=== PATIENT | female | born 1995 | race African-American/Black ===

== ENCOUNTER 2021-03-19 17:59 | Emergency (ER) | payer OTHER ==
[~2021-03-19] VITALS: Ht 170.2 cm; Wt 68.0 kg
[2021-03-19 18:10] VITALS: BP 130/84
--- NOTE | 2021-03-19 18:16 | NUR ---
PT SEEN AND EXAMINED BY AUDREY DAWSON.
[2021-03-19] MEDS ORDERED: ACETAMINOPHEN 325 MG TABLET ONE (18:37)
[2021-03-19] MEDS ORDERED: TDAP [DIPH/PERTUSSIS/TET] 0.5 ML VIAL IM ONE (18:37)
[2021-03-19] MEDS: TDAP [DIPH/PERTUSSIS/TET] 0.5 ML VIAL IM ONE (18:50)
[2021-03-19] MEDS: ACETAMINOPHEN 325 MG TABLET PO ONE (18:50)
--- NOTE | 2021-03-19 18:56 | NUR ---
WOUND CLEANING AND DRESSING DONE BY TRAVEL [facility]G RN.
--- NOTE | 2021-03-19 19:23 | NUR ---
Patient discharged to home in stable condition. Written and verbal after care instructions given. Patient verbalizes understanding of instruction. Pt ambulatory with a steady gait
== END 2021-03-19 19:24 | disposition home or self-care (01) ==
LOC: ER 17:59
DX: S61.217A Laceration without foreign body of left little finger without damage to nail, initial encounter (principal); W25.XXXA Contact with sharp glass, initial encounter; Y93.89 Activity, other specified; Y92.89 Other specified places as the place of occurrence of the external cause; Y99.8 Other external cause status
CPT/HCPCS: 90715

== ENCOUNTER 2021-10-02 09:41 | Emergency (ER) | payer OTHER ==
[~2021-10-02] VITALS: Ht 175.3 cm; Wt 63.5 kg
--- NOTE | 2021-10-02 09:51 | NUR ---
RIGHT FLANK PAIN WHEN SHE BREATHS IN DEEPLY X 1 WEEK. PT A/OX4. TOLERATING R/A WELL WITH NO SOB. CONNECTED PT TO POX AND MONITOR
[2021-10-02 10:25] LABS: PLATELET COUNT (AUTO) 223 K/uL (150-450)
[2021-10-02 10:28] LABS: BILIRUBIN,URINE Negative (NEGATIVE); COLOR,URINE YELLOW (YELLOW); LEUKOCYTE ESTERASE ,URINE Small (NEGATIVE); NITRITE, URINE Negative (NEGATIVE); PH,URINE 5.5 (5.0-8.0); PROTEIN,URINE Negative (NEGATIVE); UGLUCOSE Negative (NEGATIVE); UROBILINOGEN,URINE 0.2 EU/dL (0.2)
[2021-10-02 10:29] LABS: BACTERIA,URINE Few /HPF (None Seen); BASOPHILS # (AUTO) 0.1 K/uL (0.0-0.2); BASOPHILS % (AUTO) 1.3 % (0.0-2.0); EOSINOPHILS % (AUTO) 1.4 % (0.0-6.0); HEMATOCRIT 42 % (33-45); HEMOGLOBIN 14.2 g/dL (11.5-14.8); LYMPHOCYTES # (AUTO) 0.6 K/uL (0.8-4.8); LYMPHOCYTES % (AUTO) 5.1 % (20.0-44.0); MEAN CORPUSCULAR HGB CONC 34 g/dl (31.0-36.0); MEAN CORPUSCULAR VOLUME 96 fL (82-100); MONOCYTES % (AUTO) 9.1 % (2.0-12.0); NEUTROPHILS # (AUTO) 9.3 K/uL (1.8-8.9); NEUTROPHILS % (AUTO) 83.1 % (43.0-81.0); RED BLOOD CELL COUNT(AUTO) 4.37 MIL/uL (4.0-5.2); SQUAMOUS EPITHELIAL CELL,UR Few /HPF (None Seen); WHITE BLOOD COUNT (AUTO) 11.2 K/uL (4.3-11.0)
--- NOTE | 2021-10-02 10:37 | NUR ---
THE PATIENT IS TAKEN TO CT
[2021-10-02 10:47] LABS: ALBUMIN 3.8 g/dL (3.4-5.0); BILIRUBIN,DIRECT 0.1 mg/dL (0.0-0.2); BILIRUBIN,TOTAL 0.6 mg/dL (0.2-1.0); CALCIUM, SERUM 9.1 mg/dL (8.5-10.1); CREATININE 0.9 mg/dL (0.6-1.3); POTASSIUM 3.9 mmol/L (3.5-5.1); TOTAL PROTEIN, SERUM 8.2 g/dL (6.4-8.2)
--- NOTE | 2021-10-02 10:49 | NUR ---
THE PATIENT IS BACK FROM CT
[2021-10-02] MEDS ORDERED: CEFTRIAXONE 1GM BAG (ER ONLY) 1 GM/50 ML PIGGYBACK IV ONE (11:30)
[2021-10-02] MEDS ORDERED: CEFTRIAXONE 1GM BAG (ER ONLY) 50 ML IV ONE (11:36)
--- NOTE | 2021-10-02 12:01 | NUR ---
DC'D IV WITH NO ACTIVE BLEEDING
[2021-10-02] MEDS ORDERED: CEFD300C3 PO (12:06)
[2021-10-02] MEDS ORDERED: ACET-73 PO (12:06)
[2021-10-02] MEDS ORDERED: ACETAMINOPHEN 325 MG TABLET ONE (12:12)
--- NOTE | 2021-10-02 12:15 | NUR ---
TYLENOL 650 MG PO ONCE PER [address] RASMUSSEN. NOTED AND CARRIED OUT.
--- NOTE | 2021-10-02 12:16 | NUR ---
Patient discharged to home in stable condition. RX Written and verbal after care instructions given. Patient verbalizes understanding of instruction. PT ambulatory with a steady gait.
[2021-10-02 12:17] VITALS: BP 111/68
[2021-10-02] MEDS ORDERED: ACETAMINOPHEN 325 MG TABLET PO ONE (12:30)
== END 2021-10-02 12:18 | disposition home or self-care (01) ==
LOC: ER 09:46
DX: N12 Tubulo-interstitial nephritis, not specified as acute or chronic (principal)
CPT/HCPCS: 36415; 74176; 80048; 80076; 81001; 83690; 84703; 85025; 87086; 96365; 99284; J0696